=== PATIENT | male | born 1975 | race Caucasian/White ===

== ENCOUNTER 2019-10-20 16:17 | Observation (INO) | payer BC, OTHER ==
[2019-10-20] MEDS ORDERED: Fentanyl 100 MCG/2 ML VIAL SLOW IVP SCH (19:00)
[2019-10-20] MEDS ORDERED: Ondansetron PF 4 MG/2 ML Vial IVP PRN (19:10)
[2019-10-20] MEDS ORDERED: Dextrose 50% Abboject 50 ML SYRINGE SLOW IVP PRN (19:10)
[2019-10-20] MEDS ORDERED: Dextrose 5% in Water 1,000 ML IV PRN (19:10)
[2019-10-20] MEDS ORDERED: hydrALAZINE 20 MG/ML VIAL SLOW IVP PRN (19:10)
[2019-10-20 20:18] LABS: INR-International Normal Ratio 1.2; Prothrombin Time 15.3 sec (12.0-14.7)
[2019-10-20] MEDS: traMADol HCl 50 MG TAB PO PRN (20:19)
[2019-10-20 20:31] LABS: Band 23 % (5-11); Hemoglobin 13.6 g/dL (14.0-18.0); Lymphocytes 5 % (21-51); MDiff Complete? YES; Mean Corpuscular HGB CONC 35.1 g/dL (32.0-36.0); Mean Corpuscular Hemoglobin 31.9 pg (27.0-31.0); Mean Corpuscular Volume 90.7 fL (78.0-98.0); Mean Platelet Volume 8.2 fL (7.4-10.4); Monocytes 11 % (0-10); Neutrophil 60 % (42-75); Platelet Count 158 thou/uL (130-400); Platelet Morphology Comment Appears Adequate; Polychromasia SLIGHT = 2-3 cells (100X) (0-2/hpf); RBC Distribution Width 11.8 % (11.5-14.5); Reactive Lymphocytes 1 % (0-10); Red Blood Cell (RBC) Count 4.26 mill/uL (4.70-6.10); White Blood Cell (WBC) Count 12.2 thou/uL (4.8-10.8)
[2019-10-20 20:32] LABS: ALT (SGPT) 30 U/L (8-55); AST (SGOT) 22 U/L (5-34); Albumin 3.9 g/dL (3.5-5.0); Alkaline Phosphatase 113 U/L (40-110); Anion Gap 14 mmol/L (10-20); BUN (Urea Nitrogen) 10 mg/dL (8.9-20.6); Bilirubin, Total 1.4 mg/dL (0.2-1.2); Calc. Creatinine Clearance 0 mL/min (70-130); Calcium 9.3 mg/dL (7.8-10.44); Carbon Dioxide 25 mmol/L (22-29); Chloride 103 mmol/L (98-107); Estimated GFR-MDRD Greater than 90; Glucose 130 mg/dL (70-105); Magnesium 1.2 mg/dL (1.6-2.6); Phosphorus 3.2 mg/dL (2.3-4.7); Potassium 3.8 mmol/L (3.5-5.1); Protein, Total 6.9 g/dL (6.0-8.3); Sodium 138 mmol/L (136-145)
[2019-10-20 21:00] VITALS: BMI 25.0
[2019-10-20] MEDS: Famotidine/PF 20 mg/2ml Vial SLOW IVP SCH (21:02)
[2019-10-20] MEDS ORDERED: Insulin Regular 300 UNITS/3 ML VIAL SC PRN ×2 (21:11)
[2019-10-20] MEDS ORDERED: Magnesium Sulfate 4 GM in Sodium Chloride 0.9% 250 ML 250 ML IVPB SCH (21:30)
[2019-10-20] MEDS: Sodium Chloride 0.9% 1,000 ML IV SCH (21:40)
--- NOTE | 2019-10-20 21:51 | ULT ---
GALLBLADDER ULTRASOUND: HISTORY: Right upper quadrant abdominal pain FINDINGS: Correlation is made with the CT scan from earlier today. The liver demonstrates homogeneous echotexture without focal mass or intrahepatic biliary ductal dila tation. The gallbladder is distended with sludge and small shadowing gallstones, gallbladder wall thickening of 6 mm and pericholecystic fluid. A positive Sparks's sign was elicited. The right kidney is normal. The pancreas is obscured by overlying bowel gas. The common duct [id number] in diameter. No free fluid is seen in the Malik's pouch. IMPRESSION: Findings are consistent with acute cholecystitis.
[2019-10-20] MEDS ORDERED: Ketorolac Tromethamine 30 MG/ML VIAL IVP SCH (22:15)
--- NOTE | 2019-10-20 22:39 | HP ---
HISTORY OF PRESENT ILLNESS: The patient is a 44-year-old male, who was transferred from [place] for concern for acute cholecystitis on CT scan. Upon my evaluation, the patient reported he has been having right upper and lower quadrant cramping since evening, it woke him up from sleep. He also reports he has felt feverish, but has no recorded fever. He reports nausea today, but no vomiting. His last bowel movement was this morning. At the time of my evaluation, the patient reports he is having some crampy type right upper quadrant pain. REVIEW OF SYSTEMS: All additional 10-point review of systems negative except as indicated above. PAST MEDICAL HISTORY: Diabetes, hypertension, arthritis, migraines, and opiate abuse. PAST SURGICAL HISTORY: Left shoulder surgery. SOCIAL HISTORY: The patient lives at home alone. He works at an [employer]. He smokes about 1 pack of cigarettes per day. He denies tobacco or drug use. Reports he previously abused prescription pain medications after his left shoulder surgery that is why he is currently taking Suboxone. ALLERGIES: NO KNOWN DRUG ALLERGIES. PHYSICAL EXAMINATION: VITAL SIGNS: Temperature 98.8, pulse 71, respirations 18, oxygen saturation 99 % on room air, blood pressure 141/83. GENERAL: Well-appearing middle-aged male, sitting up in bed with some mild abdominal pain. PULMONARY: Equal chest rise and fall. Clear breath sounds bilaterally. No signs of acute respiratory distress. CARDIAC: Regular rate and rhythm. No murmurs, gallops, or rubs. GASTROINTESTINAL: Soft. Tenderness to the right upper and lower quadrant. Nondistended. No signs of peritonitis. EXTREMITIES: 2+ pulses in all extremities. Gross motor and sensation intact. No significant swelling noted. NEUROLOGIC: GCS is 15. LABORATORY FINDINGS: White count 12.2, hemoglobin 13.6, hematocrit 38.7, platelets 158. INR 1.2. Sodium 138, potassium 3.8, chloride 103, bicarb 25, BUN 10, creatinine 0.68, glucose 130, magnesium 1.2, total bilirubin 1.4, phosphorus 2.2 , AST 33, alkaline phosphatase 133, lipase 6. DIAGNOSTIC FINDINGS: Abdominal ultrasound completed this evening demonstrates findings are consistent with acute cholecystitis. The gallbladder is distended with sludge in small shadowing gallstones. Gallbladder wall thickening of 6 mm and pericholecystic fluid. A positive Sparks sign was elicited. Common bile duct measuring 5 mm in diameter. ASSESSMENT: 1. Acute cholecystitis. 2. History of diabetes, hypertension, arthritis, migraines, and opiate abuse disorder. PLAN: The patient is admitted to Dr. Eaton's service. He will take the patient to the OR tomorrow for a laparoscopic cholecystectomy. He will be n.p.o. at midnight and receive IV fluids. He has Zosyn. Hepatitis panel is still pending. Complete UA and coronavirus screen as well. Repeat blood work in the morning. This patient was discussed with Dr. Eaton before this dictation. Job ID: [id number] [facility]
[2019-10-20 22:46] LABS: HBCM Index 0.06 S/CO (0-0.79); Hep B Core Total Ab Non-Reactive (NonReactive); Hep B Core Total Index 0.07 S/CO (0-0.79); Hep C IgG Ab Non-Reactive (NonReactive); Hep C Index 0.09 S/CO (0-0.79); Hepatitis B Core IgM Abs Non-Reactive (NonReactive)
[2019-10-20] MEDS ORDERED: Piperacillin/Tazobactam 3.375 GM VIAL ONE (23:42)
[2019-10-21] MEDS: Piperacillin/Tazobactam 3.375 GM in Sodium Chloride 0.9% 100 ML IVPB SCH ×4 (00:06→16:59)
[2019-10-21] MEDS: Acetaminophen 500 MG TAB PO SCH ×2 (00:06→04:52)
[2019-10-21] MEDS: traMADol HCl 50 MG TAB PO PRN ×2 (02:52→08:10)
[2019-10-21 03:00] LABS: Bilirubin Negative (Negative); Blood, Urine Negative (Negative); Clarity Clear (Clear); Glucose, Urine (Dipstick) Normal (Negative); Leukocyte Negative Leu/uL (Negative); Nitrite Negative (Negative); Protein, Urine (Dipstick) 20 mg/dL (Neg-Trace)
[2019-10-21] MEDS ORDERED: Ketorolac Tromethamine 30 MG/ML VIAL IVP SCH (06:00)
[2019-10-21 06:03] LABS: ALT (SGPT) 30 U/L (8-55); AST (SGOT) 25 U/L (5-34); Albumin 3.3 g/dL (3.5-5.0); Alkaline Phosphatase 110 U/L (40-110); Anion Gap 9 mmol/L (10-20); BUN (Urea Nitrogen) 11 mg/dL (8.9-20.6); Band 15 % (5-11); Bilirubin, Total 1.4 mg/dL (0.2-1.2); Calc. Creatinine Clearance 133 mL/min (70-130); Calcium 8.7 mg/dL (7.8-10.44); Carbon Dioxide 30 mmol/L (22-29); Chloride 102 mmol/L (98-107); Estimated GFR-MDRD Greater than 90; Globulin 2.8 g/dL (2.4-3.5); Glucose 116 mg/dL (70-105); Hemoglobin 12.5 g/dL (14.0-18.0); Lipase 5 U/L (8-78); Lymphocytes 3 % (21-51); MDiff Complete? YES; Magnesium 2.1 mg/dL (1.6-2.6); Mean Corpuscular HGB CONC 34.8 g/dL (32.0-36.0); Mean Corpuscular Hemoglobin 31.4 pg (27.0-31.0); Mean Corpuscular Volume 90.1 fL (78.0-98.0); Mean Platelet Volume 8.2 fL (7.4-10.4); Monocytes 9 % (0-10); Neutrophil 73 % (42-75); Phosphorus 3.2 mg/dL (2.3-4.7); Platelet Count 144 thou/uL (130-400); Potassium 4.3 mmol/L (3.5-5.1); Protein, Total 6.1 g/dL (6.0-8.3); RBC Distribution Width 11.6 % (11.5-14.5); Red Blood Cell (RBC) Count 3.98 mill/uL (4.70-6.10); Sodium 137 mmol/L (136-145); White Blood Cell (WBC) Count 12.9 thou/uL (4.8-10.8)
[2019-10-21] MEDS: Atenolol 25 MG TAB PO SCH (08:10)
[2019-10-21] MEDS: Famotidine/PF 20 mg/2ml Vial SLOW IVP SCH (08:11)
[2019-10-21] MEDS: Sodium Chloride 0.9% 1,000 ML IV SCH ×2 (08:27→16:59)
[2019-10-21] MEDS: Venlafaxine XR 37.5 MG CAP PO SCH (08:27)
[2019-10-21] MEDS: Ferrous Sulfate 325 MG TAB PO SCH ×2 (08:27→16:01)
[2019-10-21] MEDS: busPIRone HCl 10 MG TAB PO SCH ×3 (08:27→21:40)
[2019-10-21] MEDS ORDERED: Buprenorphine 8mg/Naloxone 2mg per 1 FILM SL SCH (09:00)
[2019-10-21] MEDS ORDERED: Fentanyl 100 MCG/2 ML VIAL ONE ×4 (09:01→12:21)
[2019-10-21] MEDS ORDERED: Bupivacaine 0.25% HCL 30 ML VIAL ONE (09:02)
[2019-10-21] MEDS ORDERED: Lidocaine 1% w/Epinephrine 1:100K 20 ML VIAL ONE (09:02)
[2019-10-21] MEDS ORDERED: Midazolam HCl 2 mg/2 ml Vial ONE (09:14)
[2019-10-21] MEDS ORDERED: PHENYLEPHRINE-NS 100 MCG/ML 10 ML SYRINGE ONE (10:01)
[2019-10-21] MEDS ORDERED: Rocuronium Bromide 10 MG/ML (10ML VIAL) ONE (10:01)
[2019-10-21] MEDS ORDERED: Lidocaine 1% PF 5 ML VIAL ONE (10:01)
[2019-10-21] MEDS ORDERED: Ondansetron PF 4 MG/2 ML Vial ONE (10:01)
[2019-10-21] MEDS ORDERED: PROPOFOL 200 MG/20 ML VIAL ONE (10:01)
[2019-10-21] MEDS ORDERED: Metoclopramide HCl 10 MG/2 ML VIAL ONE (10:01)
[2019-10-21] MEDS ORDERED: Glycopyrrolate 0.2 MG/ML 5 ML SYRINGE ONE (10:01)
[2019-10-21] MEDS ORDERED: Ondansetron HCl/PF 4 MG/2 ML Vial IVP PRN (12:06)
[2019-10-21] MEDS ORDERED: Promethazine HCl 25 MG/ML VIAL IM PRN (12:06)
[2019-10-21] MEDS ORDERED: Promethazine HCl 25 MG/ML VIAL SLOW IVP PRN (12:06)
[2019-10-21] MEDS ORDERED: HYDROmorphone 2 MG/ML VIAL SLOW IVP PRN (12:06)
[2019-10-21] MEDS: Buprenorphine 8mg/Naloxone 2mg per 1 FILM SL SCH ×2 (12:34→21:42)
[2019-10-21] MEDS: Acetaminophen 325 MG TAB PO SCH ×2 (13:00→16:59)
[2019-10-21] MEDS: Ketorolac Tromethamine 30 MG/ML VIAL IVP SCH ×2 (13:00→17:04)
[2019-10-21 14:02] LABS: SARS-CoV-2 MS2 Positive; SARS-CoV-2 N Gene Negative; SARS-CoV-2 S Gene Negative; SARS-CoV-2 orf1ab Negative
--- NOTE | 2019-10-21 14:39 | OP ---
DATE OF PROCEDURE: 10/21/2019 PREOPERATIVE DIAGNOSIS: Acute cholecystitis with cholelithiasis. POSTOPERATIVE DIAGNOSIS: Acute gangrenous cholecystitis with cholelithiasis. OPERATION PERFORMED: Laparoscopic cholecystectomy. ANESTHESIA: General endotracheal. ESTIMATED BLOOD LOSS: 50 mL. FLUIDS GIVEN: 1500 mL crystalloids. COUNTS: Sponge and instrument counts were verified as correct x2. COMPLICATIONS: None apparent at the time of operation. INDICATIONS FOR OPERATION: A 44-year-old man presented with recurrent epigastric and right upper quadrant abdominal pain. Clinical and radiographic examination were consistent with acute cholecystitis with cholelithiasis, for which the patient was brought to the operating room for cholecystectomy. Findings are consistent with markedly distended gallbladder in the usual anatomic location, completely encased by omental adhesions. Additionally, gallbladder wall appeared necrotic and multiple foci. DESCRIPTION OF PROCEDURE: Informed consent was obtained from the patient who was brought to the operating room and placed in supine position. Following general anesthesia, abdomen was sterilely prepped and draped in usual fashion. Skin below the umbilicus was infiltrated with 0.25% Marcaine with epinephrine. A small curvilinear infraumbilical incision was made using 11 scalpel. Umbilical stalk grasped with Gelacio and elevated. Veress needle inserted through the incision and placed in the peritoneal cavity, through which the abdomen was insufflated with 3 L of CO2 gas. Intraabdominal pressure was noted at 2 mmHg. Following abdominal insufflation, Veress needle was removed and a 5-mm trocar introduced using a Visiport under laparoscopy. Laparoscopy confirmed proper placement of the port and no injuries to underlying structures. Additional laparoscopy revealed the right upper quadrant completely encased by omental adhesions. Under laparoscopy, a 12 mm epigastric and two 5-mm right lateral subcostal ports were placed after the overlying skin infiltrated with 0.25% Marcaine with epinephrine. Appropriate incision was made. The patient was placed in a reverse Trendelenburg position, rotated to his left. I introduced a [place] dissector with cautery, using this to take down omental adhesions off the edge of the liver to expose the fundus of the gallbladder. I introduced a Ensaige grasper through the right lateral subcostal port, attempted to grasp the fundus of the gallbladder, which was markedly distended and taut. I decided to decompress the gallbladder and achieved this using an Endo suction catheter with cautery to perform a cholecystotomy at the dome of the gallbladder, evacuating excess black bile. Prestige grasper was then applied at the fundus of the gallbladder, which was elevated cephalad. Omental adhesions were then bluntly taken down from remainder of the gallbladder. A second Prestige grasper introduced through the right medial subcostal port, grasping the hospital Laurie's pouch, which was retracted laterally. I opened the peritoneum of the gallbladder. The gallbladder neck and cystic duct and artery were dissected free from surrounding structures, obtaining critical view. The common bile duct was not visualized. The cystic duct was divided at the junction of the cystic duct and gallbladder between clips, applying 2 clips proximally and 1 clip at the junction of the cystic duct and gallbladder. The cystic artery was also divided high up next to the gallbladder between clips in a similar fashion. The gallbladder itself was removed from the liver bed using cautery and delivered out the abdominal cavity using an EndoCatch. Operative site was inspected. The clips remained in place. The gallbladder fossa was oozing of venous blood. Hemostasis was readily achieved using Rasheed. Finding no other pathology, laparoscopy was terminated. Fascia of the epigastric port was closed using 0 Vicryl suture and Endoclosure device on the laparoscopy. It was doubly layer closed externally using 0 Vicryl suture on a UR6. The abdomen was desufflated. All ports and instruments were removed and accounted for. Skin incision was closed using 4-0 Monocryl suture in subcuticular fashion. Dermabond was applied over incisional closure. The patient tolerated this operation without any apparent complication and was returned to recovery room in satisfactory condition. Job ID: [id number]
[2019-10-21] MEDS: Famotidine 20 MG TAB PO SCH (21:44)
[2019-10-22] MEDS: Acetaminophen 325 MG TAB PO SCH ×3 (00:27→13:14)
[2019-10-22] MEDS: Ketorolac Tromethamine 30 MG/ML VIAL IVP SCH ×2 (00:28→05:19)
[2019-10-22] MEDS: Piperacillin/Tazobactam 3.375 GM in Sodium Chloride 0.9% 100 ML IVPB SCH (00:28)
[2019-10-22] MEDS: Sodium Chloride 0.9% 1,000 ML IV SCH ×2 (05:20→13:14)
[2019-10-22 06:12] LABS: #Eosinphils 0.1 thou/uL (0.0-0.7); #Lymphocytes 0.7 thou/uL (1.20-3.40); #Monocytes 0.6 thou/uL (0.11-0.59); #Neutrophils 6.2 thou/uL (1.40-6.50); %Basophils 0.2 % (0.0-1.0); %Eosinophils 0.7 % (0.0-10.0); %Lymphocytes 9.4 % (21.0-51.0); %Monocytes 7.5 % (0.0-10.0); %Neutrophils 82.2 % (42.0-75.0); Hemoglobin 10.7 g/dL (14.0-18.0); Mean Corpuscular HGB CONC 34.2 g/dL (32.0-36.0); Mean Corpuscular Hemoglobin 31.4 pg (27.0-31.0); Mean Platelet Volume 7.8 fL (7.4-10.4); Platelet Count 162 thou/uL (130-400); RBC Distribution Width 11.8 % (11.5-14.5); White Blood Cell (WBC) Count 7.5 thou/uL (4.8-10.8)
--- NOTE | 2019-10-22 06:45 | PDOC.BPN ---
- Brief Progress Note Date of Service: 10/22/2019 SUBJECTIVE: Patient remain in surgical floor. Patient was seen on round last evening He voiced no concern PHYSICAL EXAMINATION: GENERAL: Currently, the patient is lying down in bed comfortable with no acute respiratory distress, generalized. The patient is alert and awake. GCS 15. VITAL sign stable LUNGS: Clear bilaterally. HEART: Regular rate and rhythm. ABDOMEN: Atraumatic. No bruising. No tender to palpation. Nondistended. Bowel sounds active. EXTREMITIES: Neurovascularly intact x4. NEUROLOGIC: No focal neurology deficits. ASSESSMENT: 1. Cholesystitis S/P cholecystectomy PLAN: continue pain control. will work with PT/ OT today. Continue supportive care .
[2019-10-22 07:10] LABS: ALT (SGPT) 30 U/L (8-55); AST (SGOT) 27 U/L (5-34); Albumin 2.9 g/dL (3.5-5.0); Alkaline Phosphatase 89 U/L (40-110); Anion Gap 10 mmol/L (10-20); BUN (Urea Nitrogen) 21 mg/dL (8.9-20.6); Bilirubin, Direct 0.6 mg/dL (0.1-0.3); Bilirubin, Total 0.7 mg/dL (0.2-1.2); Calc. Creatinine Clearance 104 mL/min (70-130); Carbon Dioxide 27 mmol/L (22-29); Chloride 107 mmol/L (98-107); Estimated GFR-MDRD 88; Glucose 162 mg/dL (70-105); Magnesium 2.1 mg/dL (1.6-2.6); Phosphorus 2.2 mg/dL (2.3-4.7); Potassium 3.7 mmol/L (3.5-5.1); Protein, Total 5.7 g/dL (6.0-8.3); Sodium 140 mmol/L (136-145)
[2019-10-22] MEDS ORDERED: Potassium Phosphate 30 MMOL in Sodium Chloride 0.9% 500 ML IVPB SCH (08:00)
[2019-10-22] MEDS: Atenolol 25 MG TAB PO SCH (08:09)
[2019-10-22] MEDS ORDERED: Potassium Phosphate 30 MMOL in Sodium Chloride 0.9% 250 ML 250 ML IVPB SCH (08:30)
[2019-10-22] MEDS: busPIRone HCl 10 MG TAB PO SCH ×2 (09:00→15:31)
[2019-10-22] MEDS: traMADol HCl 50 MG TAB PO PRN ×2 (09:02→15:31)
[2019-10-22] MEDS: Venlafaxine XR 37.5 MG CAP PO SCH (09:04)
[2019-10-22] MEDS: Famotidine 20 MG TAB PO SCH (09:04)
[2019-10-22] MEDS: Ferrous Sulfate 325 MG TAB PO SCH (09:04)
[2019-10-22] MEDS: Buprenorphine 8mg/Naloxone 2mg per 1 FILM SL SCH (09:10)
[2019-10-22] MEDS ORDERED: Ibuprofen 600 MG TAB PO PRN (09:49)
--- NOTE | 2019-10-22 11:14 | DIS ---
DATE OF ADMISSION: 10/20/2019 DATE OF DISCHARGE: 10/22/2019 PROCEDURES: 1. Laparoscopic cholecystectomy performed by Dr. Eaton on 10/21/2019. 2. Right upper quadrant abdominal ultrasound performed on 10/20/2019, demonstrating acute cholecystitis. PRIMARY DIAGNOSIS: Acute gangrenous cholecystitis with cholelithiasis. SECONDARY DIAGNOSES: 1. Type 2 diabetes. 2. Hypertension. 3. Arthritis. 4. Migraines. 5. History of opiate abuse. DISCHARGE MEDICATIONS: 1. Ibuprofen 600 mg p.o. q.8 hours p.r.n. 2. Augmentin 875 mg p.o. q.12 hours x5 days. 3. Tramadol 50 mg p.o. q.6 hours p.r.n. 4. Tylenol 650 mg p.o. q.6 hours p.r.n. 5. Ergocalciferol 1.25 mg p.o. daily. 6. Glycopyrrolate 1 mg p.o. daily. 7. Effexor XR 37.5 mg p.o. daily. 8. BuSpar 15mg p.o. t.i.d. 9. Lasix 20 mg p.o. p.r.n. 10. Iron sulfate 325 mg p.o. b.i.d. 11. Rizatriptan 10 mg p.o. q.6 hours p.r.n. 12. Venlafaxine 100 mg p.o. t.i.d. 13. Metformin 500 mg p.o. b.i.d. 14. Suboxone 8 mg-2 mg one film sublingual b.i.d. 15. Atenolol 25 mg p.o. daily. HISTORY OF PRESENT ILLNESS AND HOSPITAL COURSE: The patient is a 44-year-old male transferred from [place] for acute cholecystitis on CT scan. The patient initially had a right upper quadrant ultrasound that demonstrated acute cholecystitis. He was hemodynamically stable. He was admitted to the hospital with IV antibiotics and taken to the OR the subsequent morning for laparoscopic cholecystectomy. Cholecystectomy was performed demonstrating acute gangrenous cholecystitis with cholelithiasis as well as a nodular appearing liver. The patient tolerated the procedure well with no complications. Postoperatively, the patient was continued on IV antibiotics for 24 hours to be discharged on a 5-day course of Augmentin. The patient's home medications were continued. The patient's pain was very well controlled. He was ambulating well and tolerating p.o. intake without any nausea or vomiting. Voiding and stooling well. The patient was very eager for discharge. Discharge plan was discussed with the patient including the need to avoid lifting greater than 20 pounds for the next 2 weeks. No soaking his wounds in water as well as appropriate pain control. The patient's wounds were examined on the day of discharge and were healing well without signs of infection. The patient will follow up in 2 weeks or sooner if needed with return precautions given. The patient was seen and examined by Dr. Eaton on morning rounds on the day of discharge. The discharge plan was discussed with the patient at bedside, who voiced agreement and understanding of the plan and all questions were answered appropriately. DISPOSITION: Stable. DISCHARGE INSTRUCTIONS: 1. Location: Home. 2. Diet: As tolerated. 3. Activity: No heavy lifting greater than 20 pounds for 2 weeks. No pools or baths for 2 weeks. Otherwise as tolerated. 4. Followup: The patient should follow up with Dr. Eaton in 2 weeks or sooner if needed. Job ID: [id number] [facility]
[2019-10-22 15:25] VITALS: BP 111/71; TEMP 98.9
[2019-10-22] MEDS ORDERED: Amoxicillin/Potassium Clav 875 MG TAB PO SCH (21:00)
== END 2019-10-22 15:50 | disposition home or self-care (01) ==
LOC: SURG A 18:28
PROVIDERS: ADMIT Surgery; ATTEND Surgery
PROC: 0FT44ZZ Resection of Gallbladder, Percutaneous Endoscopic Approach (ICD-10-PCS; principal; 2019-10-21)
DX: K80.12 Calculus of gallbladder with acute and chronic cholecystitis without obstruction (principal); K82.A1 Gangrene of gallbladder in cholecystitis; K66.0 Peritoneal adhesions (postprocedural) (postinfection); E11.9 Type 2 diabetes mellitus without complications; I10 Essential (primary) hypertension; M19.90 Unspecified osteoarthritis, unspecified site; G43.909 Migraine, unspecified, not intractable, without status migrainosus; F11.11 Opioid abuse, in remission; F17.210 Nicotine dependence, cigarettes, uncomplicated; Z79.84 Long term (current) use of oral hypoglycemic drugs; Z79.899 Other long term (current) drug therapy
CPT/HCPCS: 36415; 36416; 76705; 80048; 80053; 80076; 81003; 82533; 83690; 83735; 84100; 85007; 85025; 85027; 85610; 86704; 86705; 86709; 86803; 86850; 86900; 86901; 87635; 88304; 96361; 96365; 96366; 96367; 96375; 96376; G0378; J1885; J2001; J2250; J2405; J2543; J2704; J2765; J3010; J3475; J3490; J7050; S0020; S0028; U0003